=== PATIENT | male | born 1970 | race Two or more races ===

== ENCOUNTER 2024-05-27 07:05 | Emergency (ER) | payer OTHER ==
[~2024-05-27] VITALS: Ht 165.1 cm; Wt 69.9 kg
[~2024-05-27 07:05] MED LIST: DEPAKOTE ER500 MG PO; FLONASE16 GM NASAL; INTESTINEX680 M2 PO; LEVOFLOXACIN750 MG PO; PEPCID AC20 MG PO; SINGULAIR10 MG PO; THEOPHYLLINE A300 M1 PO; VITAMIN D3 PO; ZOCOR40 MG PO; ZYRTEC-D ER 51 EACH PO
== END 2024-05-27 08:23 | disposition home or self-care (01) ==
LOC: ER 07:06
DX: K64.9 Unspecified hemorrhoids (principal); Z88.0 Allergy status to penicillin; Z88.6 Allergy status to analgesic agent